=== PATIENT | male | born 1980 | race Caucasian/White ===

== ENCOUNTER 2022-09-01 11:36 | Outpatient (CLI) | payer OTHER, SELFPAY | END 2022-09-01 11:37 | disposition home or self-care (01) | PROVIDERS: PCP Family Medicine; Visit Provider Family Medicine | DX: Z00.00 Encounter for general adult medical examination without abnormal findings (principal); Z13.6 Encounter for screening for cardiovascular disorders | CPT/HCPCS: 80048; 80061 ==

== ENCOUNTER 2024-06-25 09:05 | Outpatient (CLI) | payer OTHER, SELFPAY | END 2024-06-25 09:06 | disposition home or self-care (01) | PROVIDERS: PCP Family Medicine; Visit Provider Family Medicine | DX: E78.2 Mixed hyperlipidemia (principal); L20.9 Atopic dermatitis, unspecified | CPT/HCPCS: 80048; 80061 ==